=== PATIENT | female | born 1950 | race Asian ===

== ENCOUNTER 2017-03-08 08:17 | Day surgery (SDC) | payer OTHER ==
[2017-03-06 11:37] VITALS: BMI 24.5
[2017-03-08] MEDS ORDERED: PROPOFOL 20 ML ONE ×2 (08:24)
[2017-03-08] MEDS ORDERED: LIDOCAINE HCL/PF 2% SDV 5ML VIAL ONE (08:25)
[2017-03-08 10:27] VITALS: TEMP 98.8
[2017-03-08 10:55] VITALS: BP 113/83; PULSE 69
--- NOTE | 2017-03-09 12:38 | PATH ---
Surgical Pathology Report Patient Name: LUIS FELIPE ALMANZA [facility]. Rec. #: [id number] /Age/Gender: 1950 (Age: 66) / F Account: [id number] Location: [facility]-ENDOSCOPY Taken: 03/08/2017 Received: 03/08/2017 Reported: 03/09/2017 Physicians: Umer Franks M.D. Specimen(s) Received A: BX DUODENUM B: BX ANTRUM Clinical History Rule out colon cancer, GERD Rule out celiac, mild gastritis Final Diagnosis A. DUODENUM, BIOPSY: DUODENAL MUCOSA WITH NO PATHOLOGIC CHANGES. NO HISTOLOGIC EVIDENCE OF GLUTEN SENSITIVE ENTEROPATHY (CELIAC SPRUE) IDENTIFIED. B. STOMACH, ANTRUM, BIOPSY: GASTRIC ANTRAL MUCOSA WITH FOCAL INTESTINAL METAPLASIA. NO DYSPLASIA IDENTIFIED. IMMUNOSTAIN FOR H. PYLORI IS NEGATIVE. Electronically Signed Humberto Tillman M.D. Gross Description A. Received in formalin, labeled "duodenum" are 3 fernández, irregular portions of soft tissue averaging 0.3 cm. in greatest dimension. The specimens are submitted in toto in one cassette. B. Received in formalin, labeled "antrum" are 3 fernández, irregular portions of soft tissue ranging from 0.2-0.3 cm. in greatest dimension. The specimens are submitted in toto in one cassette. 03/08/201703/08/2017
== END 2017-03-08 10:40 | disposition home or self-care (01) ==
LOC: FASU-ENDO 08:17
PROVIDERS: ATTEND Internal Medicine Gastroenterology
PROC: 0DB68ZX Excision of Stomach, Via Natural or Artificial Opening Endoscopic, Diagnostic (ICD-10-PCS; 2017-03-08)
PROC: 0DJD8ZZ Inspection of Lower Intestinal Tract, Via Natural or Artificial Opening Endoscopic (ICD-10-PCS; principal; 2017-03-08 09:39)
PROC: 0DB98ZX Excision of Duodenum, Via Natural or Artificial Opening Endoscopic, Diagnostic (ICD-10-PCS; 2017-03-08 09:39)
DX: Z12.11 Encounter for screening for malignant neoplasm of colon (principal); Z80.0 Family history of malignant neoplasm of digestive organs; K31.89 Other diseases of stomach and duodenum
CPT/HCPCS: 43239; G0105; 88305-TC; 88342-TC